=== PATIENT | female | born 1975 | race Caucasian/White ===

== ENCOUNTER 2016-06-11 11:37 | Emergency (ER) | payer OTHER ==
[~2016-06-11] VITALS: Ht 165.1 cm; Wt 71.2 kg
--- NOTE | 2016-06-11 11:43 | ED PSYCHIATRIC COMPLAINT ---
History of Present Illness General Chief Complaint: Psychiatric Related Complaint Stated Complaint: BIBA SI Source: patient Exam Limitations: no limitations Vital Signs & Intake/Output Vital Signs & Intake/Output Vital Signs Date Time Temp Pulse Resp B/P Pulse O2 O2 Flow FiO2 Ox Delivery Rate 06/11 1736 98.3 87 18 126/72 95 Room Air 06/11 1507 97.2 81 20 106/62 98 Room Air 06/11 1146 96.3 94 20 113/86 96 Room Air Allergies Coded Allergies: No Known Allergies (06/11/16) Reconcile Medications Bupropion HCl (Bupropion XL) 300 MG TAB.ER.24H 1 TAB PO DAILY MENTAL HEALTH ( Reported) Cholecalciferol (Vitamin D3) (Vitamin D) 2,000 UNIT TABLET 1 TAB PO DAILY SUPPLEMENT (Reported) Lamotrigine 200 MG TABLET 1 TAB PO DAILY MENTAL HEALTH (Reported) Lorazepam 0.5 MG TABLET 1 TAB PO BID PRN ANXIETY (Reported) Norethindrone-E.estradiol-Iron (Junel Fe 1 MG-20 Mcg Tablet) 1 MG-20 MCG (21)/75 MG (7) TABLET 1 TAB PO DAILY CONTROL (Reported) Ranitidine HCl (Acid Control) 150 MG TABLET 1 TAB PO PRN HIVES (Reported) Triage Nurses Notes Reviewed? yes Onset: Abrupt Duration: day(s): Timing: recent history HPI: 06/11/16 1 PM 41-year-old female brought in by EMS on a police paper. The patient had not shown up for work for several days. They found her in a position crying. She is reluctant to talk and is not giving information. There is concern for suicidal ideation. Crisis consultation has been requested. The onset of symptoms were abrupt, the duration is really unknown, the severity is significant as her symptoms required her to br brought to the emergency department (CRISTÓBAL HANSON DO) Past History Medical History Any Pertinent Medical History? see below for history Psychiatric: depression Surgical History Surgical History: non-contributory Family History Hx Contributory? No (CRISTÓBAL HANSON DO) Review of Systems Review of Systems Constitutional: Denies: fever. EENTM: Reports: no symptoms. Respiratory: Reports: no symptoms. Cardiovascular: Reports: no symptoms. GI: Reports: no symptoms. Genitourinary: Reports: no symptoms. Musculoskeletal: Reports: no symptoms. Skin: Reports: no symptoms. Neurological/Psychological: Reports: depressed. Hematologic/Endocrine: Reports: no symptoms. (CRISTÓBAL HANSON DO) Physical Exam Physical Exam General Appearance: alert, awake, anxious, moderate distress Head: atraumatic, normal appearance Eyes: Bilateral: normal appearance, PERRL, EOMI. Ears, Nose, Throat: normal pharynx, normal ENT inspection Neck: normal inspection, supple Respiratory: normal breath sounds, chest non-tender, no respiratory distress Cardiovascular: regular rate/rhythm Gastrointestinal: non-tender Extremities: normal range of motion Neurological/Psychiatric: no motor/sensory deficits, awake, depressed affect Appearance/Memory/Insight: disheveled Behavoir/Eye Contact/Speech: uncooperative Thoughts/Hallucinations: normal thought pattern, no apparent hallucination Skin: intact, normal color, warm/dry SAD PERSONS SAD PERSONS Response Value Depression/Hopelessness? yes 2 Previous Attempts/Psych Care yes 1 Excessive Ethanol/Drug Use? yes 1 Social Support? has support 0 Total 4 SAD PERSONS Done? yes (CRISTÓBAL HANSON DO) Progress Differential Diagnosis: drug intoxication, drug overdose, depression, bipolar disorder, schizophrenia Plan of Care: Orders Procedure Date/time Status Continuous Observation Monitor 06/11 1306 Active URINE DRUG SCREEN FOR ER ONLY 06/11 1306 Complete ETHANOL 06/11 1306 Complete COMPREHENSIVE METABOLIC PANEL 06/11 1306 Complete CBC WITHOUT DIFFERENTIAL 06/11 1306 Complete ED CRISIS PSYCH CONSULT 06/11 1306 Active Laboratory Tests 06/11/16 1503: Urine Opiates Screen < 100.00, Methadone Screen < 40, Barbiturate Screen < 60, Ur Phencyclidine Scrn < 6.00, Amphetamines Screen 806, U Benzodiazepines Scrn < 85, Urine Cocaine Screen < 50, Urine Cannabis Screen 6.70 06/11/16 1340: Anion Gap 14, Estimated GFR > 60, BUN/Creatinine Ratio 14.4, Glucose 74, Calcium 9.1, Total Bilirubin 0.5, AST 25, ALT 29, Alkaline Phosphatase 58, Total Protein 7.2, Albumin 4.4, Globulin 2.8, Albumin/Globulin Ratio 1.6, CBC w Diff MAN DIFF ORDERED, RBC 4.86, MCV 93.6, MCH 31.2 H, RDW 13.1, MPV 7.3 L, Gran % 71.3, Lymphocytes % 20.6, Monocytes % 6.5, Eosinophils % 1.1, Basophils % 0.5, Absolute Granulocytes 11.7 H, Absolute Lymphocytes 3.4, Absolute Monocytes 1.1 H, Absolute Eosinophils 0.2, Absolute Basophils 0.1, Platelet Estimate ADEQUATE, Normocytic RBCs VERIFIED, Normochromic RBCs VERIFIED, PUBS MCHC 33.3, Serum Alcohol 109.0 Initial ED EKG: none (CRISTÓBAL HANSON DO) Departure Departure Disposition: HOME OR SELF CARE Condition: Stable Clinical Impression Primary Impression: Depression Departure Forms: Customer Survey General Discharge Information Comments 7:30 PM PATIENT SEEN EVALUATED AND CLEARED BY CRISIS. The patient was awake alert oriented 3. She denied any complaints and was comfortable with the crisis plan. Her boyfriend took her home. (CRISTÓBAL HANSON DO) Critical Care Note Critical Care Note Critical Care Time: 30-74 min (CRISTÓBAL HANSON DO)
[2016-06-11 13:46] LABS: ABSOLUTE BASOPHIL COUNT 0.1 /CUMM (0.0-0.2); ABSOLUTE EOSINOPHIL COUNT 0.2 /CUMM (0.0-0.7); ABSOLUTE GRANULOCYTE CT 11.7 /CUMM (1.4-6.5); ABSOLUTE LYMPH COUNT 3.4 /CUMM (1.2-3.4); ABSOLUTE MONOCYTE COUNT 1.1 /CUMM (0.10-0.60); BASOPHIL % 0.5 % (0.0-2.0); EOSINOPHIL % 1.1 % (0-5); GRANULOCYTE % 71.3 % (42.2-75.2); HEMATOCRIT 45.5 % (37-47); MEAN CORPUSCULAR HGB 31.2 PG (27.0-31.0); MEAN CORPUSCULAR HGB CONC 33.3 G/DL (33.0-37.0); MEAN CORPUSCULAR VOLUME 93.6 FL (81.0-99.0); MEAN PLATELET VOLUME 7.3 FL (7.4-10.4); PLATELET COUNT 373 /CUMM (130-400); RBC DISTRIBUTION WIDTH 13.1 % (11.5-14.5); RED BLOOD CELL CT 4.86 /CUMM (4.20-5.40); WHITE BLOOD CELL COUNT 16.4 /CUMM (4.8-10.8)
[2016-06-11 17:36] VITALS: BP 126/72
[2016-06-11] MEDS ORDERED: BUPROPION XL300 M1 PO (18:39)
[2016-06-11] MEDS ORDERED: JUNEL FE 1 MG-1 EACH PO (18:40)
[2016-06-11] MEDS ORDERED: LAMOTRIGINE200 M2 PO (18:40)
[2016-06-11] MEDS ORDERED: LORAZEPAM0.5 M1 PO (18:40)
[2016-06-11] MEDS ORDERED: VITAMIN D2000 UNI1 PO (18:41)
[2016-06-11] MEDS ORDERED: ACID CONTROL150 MG PO (18:41)
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
== END 2016-06-11 19:48 ==
LOC: ERH 11:37
PROVIDERS: Emergency Medicine
DX: F32.9 Major depressive disorder, single episode, unspecified (principal)
CPT/HCPCS: 80307; G0463; G0480